=== PATIENT | female | born 1970 | race Caucasian/White ===

== ENCOUNTER 2017-09-03 10:57 | Emergency (ER) | payer OTHER ==
[~2017-09-03] VITALS: Ht 160 cm; Wt 58.1 kg
[~2017-09-03 10:57] MED LIST: CELEXA40 MG PO; PANTOPRAZOLE SO40 MG PO
--- OUTSIDE RECORDS SUMMARY | 2017-09-03 11:00 | XMS REPORT | Summary of Care ---
Author Author [facility] Address [address] [place] [address] Phone Unavailable Care Team Providers Care Clinical Services Consultant Name Role Phone ANTHONY DESAI N.P. 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 * Refills: 0 * Start : 02-May-2017 Active Propranolol HCl TABS * Refills: 0 Active Pantoprazole Sodium 40 MG Oral Tablet Delayed Release TAKE 1 TABLET BY MOUTH EVERY MORNING 30 MINUTES BEFORE BREAKFAST * Quantity: 30 Refills: 2 DEMIAN BERNARD * Start : 02-May-2017 Active AZO Cranberry TABS * Refills: 0 Active Amoxicillin-Pot Clavulanate 500-125 MG Oral Tablet TAKE 1 TABLET TWICE DAILY, WITH MORNING AND EVENING MEAL * Quantity: 10 Refills: 0 ANTHONY DESAI N.P. * Start : 31-May-2017 Active Allergies and Adverse Reactions Name Dates Details No Known Drug Allergies (Allergy) Status: Active Past Medical History Name Dates Details History of depression (V11.8, Z86.59) Status: Resolved History of gastritis (V12.79, Z87.19) Status: Resolved History of hearing problem (V12.49, Z86.69) Status: Resolved History of influenza (V12.09, Z87.09) Status: Resolved History of Vision problem (V41.0, H54.7) Status: Resolved Procedures Procedure Dates Details History of tubal ligation Completed History of rotator cuff repair Completed History of stapedectomy Completed History of tonsillectomy Completed History of hip surgery Completed Immunization Name Dates Details Immunizations not documented Family History Name Dates Details Family history of depression (V17.0, Z81.8) Status: Active Name Dates Details Family history of depression (V17.0, Z81.8) Status: Active Name Dates Details Family history of lung cancer (V16.1, Z80.1) Status: Active Family history of diabetes mellitus (V18.0, Z83.3) Status: Active Family history of High cholesterol (272.0, E78.00) Status: Active Family history of hypertension (V17.49, Z82.49) Status: Active Name Dates Details Family history of diabetes mellitus (V18.0, Z83.3) Status: Active Family history of High cholesterol (272.0, E78.00) Status: Active Family history of hypertension (V17.49, Z82.49) Status: Active Name Dates Details Family history of depression (V17.0, Z81.8) Status: Active Social History Name Dates Details - Status: Name Dates Details Former smoker Vital Signs Date Test Result Details :06 BP Systolic 113 mm[Hg] Status: Comments: Location: LUE; Position: Sitting BP Diastolic 77 mm[Hg] Status: Comments: Location: LUE; Position: Sitting Height 63 in Status: Weight 128.125 lb Status: Body Mass Index Calculated 22.7 kg/m2 Status: Body Surface Area Calculated 1.6 m2 Status: Temperature 97.5 f Status: Comments: Method: Temporal Heart Rate 72 /min Status: Comments: Location: L Brachial Artery; Respiration Rate 16 /min Status: Results Date Description Value Details :08 [O] Urine Dipstick (In Office) LEUKOCYTES trace NITRITE neg (Normal) UROBILINOGEN normal (Normal) PROTEIN neg (Normal) pH 5 URINE BLOOD trace SPECIFIC GRAVITY 1.020 KETONES neg (Normal) BILIRUBIN normal (Normal) GLUCOSE normal (Normal) COLOR URINE yellow APPEARANCE clear [id number] [[facility]] CULTURE, URINE, ROUTINE CULTURE Comments: CULTURE, URINE, ROUTINE MICRO NUMBER: [id number] TEST STATUS: FINAL SPECIMEN SOURCE: NOT GIVEN SPECIMEN QUALITY: ADEQUATE RESULT: No Growth Plan of Care Name Dates Details Planned Observations Planned Goals not documented Instructions Name Dates Details Instructions not documented Encounters Appointment; DEMIAN CRAWFORD P.A. Encounter Diagnosis: Problem not documented On: 02-May-2017 9:45 Appointment; ANTHONY DESAI NP Encounter Diagnosis: Problem not documented On: 31-May-2017 8:00
[2017-09-03] MEDS ORDERED: MORPHINE SULFATE 4 MG/ML SYR IV STA (11:01)
[2017-09-03] MEDS ORDERED: SODIUM CHLORIDE 0.9% 1000ML 1,000 ML IV STA (11:01)
[2017-09-03] MEDS ORDERED: DIATRIZOATE MEGL/DIATRIZOA SOD 30 ML BTL PO ONE (11:09)
[2017-09-03] MEDS ORDERED: ONDANSETRON HCL 4 MG ORAL DISINTEGRATING TAB PO ONE (11:15)
[2017-09-03] MEDS ORDERED: ASPIRIN 81 MG CHEW TAB PO ONE (11:15)
--- NOTE | 2017-09-03 11:59 | Diagnostic Imaging Report ---
EXAMINATION: CHEST SINGLE (PORTABLE) INDICATION: \S\ERMD ORDER \S\[id number] \S\1125 \S\Y COMPARISON: None FINDINGS: AP view TUBES and LINES: None. LUNGS: Lungs are well inflated. Lungs are clear. There is no evidence of pneumonia or pulmonary edema. PLEURA: No pleural effusion or pneumothorax. HEART AND MEDIASTINUM: The cardiomediastinal silhouette is unremarkable. BONES AND SOFT TISSUES: No acute osseous lesion. Lower cervical fusion hardware. Soft tissues are unremarkable. UPPER ABDOMEN: No free air under the diaphragm. IMPRESSION: No acute thoracic abnormality. Signed by: DR. Adelso Paez MD on 09/03/2017 11:55 AM
[2017-09-03 12:40] LABS: PREGNANCY TEST, URINE NEGATIVE (NEGATIVE)
[2017-09-03 12:43] LABS: BILIRUBIN,URINE NEGATIVE (NEGATIVE); KETONES,URINE NEGATIVE (NEGATIVE); LEUKOCYTE ESTERASE ,URINE NEGATIVE (NEGATIVE); NITRITE,URINE NEGATIVE (NEGATIVE); PROTEIN,URINE DIPSTICK NEGATIVE (NEGATIVE); URINE UROBILINOGEN 0.2 mg/dL (0.2 - 1)
[2017-09-03 12:54] LABS: COLOR,URINE YELLOW (YELLOW)
[2017-09-03 12:55] LABS: BACTERIA,URINE RARE /HPF; CLARITY,URINE CLEAR (CLEAR); EPITHELIAL CELLS,URINE FEW /LPF; RBC,URINE 0-5 /HPF (0-5); WBC,URINE (MAN) 0-5 /HPF (0-5)
[2017-09-03 13:06] LABS: BASOPHILS % 0.3 % (0.0-1.0); EOSINOPHILS # (AUTO) 0.1 (0.0-0.4); EOSINOPHILS % 1.8 % (0.0-6.0); HEMATOCRIT 37.9 % (34.2-44.1); HEMOGLOBIN 12.8 g/dL (12.0-16.0); LYMPHOCYTES # (AUTO) 0.6 (1.0-3.2); LYMPHOCYTES % 17.4 % (18.0-39.1); MEAN CORPUSCULAR HEMOGLOBIN 34.3 pg (28-32); MEAN CORPUSCULAR HGB CONC 33.8 g/dL (31-35); MEAN CORPUSCULAR VOLUME 101.6 fL (81-99); MONOCYTES # (AUTO) 0.3 (0.2-0.8); MONOCYTES % 8.8 % (4.4-11.3); NEUTROPHILS # (AUTO) 2.4 (2.1-6.9); NEUTROPHILS % 71.4 % (38.7-80.0); PLATELET COUNT 176 x10e3/uL (140-360); RED BLOOD COUNT 3.73 x10e6/uL (3.6-5.1); RED CELL DISTRIBUTION WIDTH 12.4 % (11.7-14.4)
[2017-09-03 13:21] LABS: ALANINE AMINOTRANSFERASE 33 IU/L (0-55); ALBUMIN 4.6 g/dL (3.5-5.0); ALBUMIN/GLOBULIN RATIO 1.3 (0.8-2.0); ALKALINE PHOSPHATASE 59 IU/L (40-150); AMYLASE 76 U/L (25-125); ANION GAP 14.9 mmol/L (8-16); BLOOD UREA NITROGEN 14 mg/dL (7-26); BUN/CREATININE RATIO 17 (6-25); CALCIUM 9.1 mg/dL (8.4-10.2); CARBON DIOXIDE 24 mmol/L (22-29); CHLORIDE 105 mmol/L (98-107); CREATINE KINASE 71 IU/L (29-168); CREATININE, SERUM 0.81 mg/dL (0.57-1.11); EST GLOMERULAR FILTRATION RATE > 60 ML/MIN (60-); GLUCOSE 109 mg/dL (74-118); LIPASE 33 U/L (8-78); POTASSIUM 3.9 mmol/L (3.5-5.1); SODIUM 140 mmol/L (136-145)
[2017-09-03 13:25] LABS: BAND NEUTROPHILS % (MANUAL) 1 %; EOSINOPHILS % (MANUAL) 2 % (0-7); LYMPHOCYTES % (MANUAL) 30 % (19-48); MONOCYTES % (MANUAL) 6 % (3.4-9.0); NEUTROPHILS % (MANUAL) 58 % (40-74)
[2017-09-03] MEDS ORDERED: MORPHINE SULFATE 2 MG/ML SYR ONE (13:25)
[2017-09-03 13:26] LABS: PLATELET ESTIMATE ADEQUATE; PLATELET MORPHOLOGY COMMENT NORMAL; RBC MORPHOLOGY COMMENT ABNORMAL
--- NOTE | 2017-09-03 14:26 | Diagnostic Imaging Report ---
EXAM: CT Abdomen and Pelvis WITH contrast INDICATION: \S\r/o divertic COMPARISON: Abdominal CT from 02/01/2000 TECHNIQUE: Abdomen and pelvis were scanned utilizing a multidetector helical scanner from the lung base to the pubic symphysis after administration of IV contrast. Coronal and sagittal reformations were obtained. Routine protocol was performed. Scan was performed when during portal venous phase. IV CONTRAST: 100 mL of Isovue-370 ORAL CONTRAST: Gastroview COMPLICATIONS: None RADIATION DOSE: Total DLP: 311.8 mGy*cm Estimated effective dose: (DLP x 0.015 x size factor) mSv CTDIvol has been reviewed. It is below the limits set by the Radiation Protocol Committee (RPC). FINDINGS: LINES and TUBES: None. LOWER THORAX: Unremarkable HEPATOBILIARY: No focal hepatic lesions. No biliary ductal dilation. Single tiny focus of air in the nondilated common bile duct which may be related to prior sphincterotomy. GALLBLADDER: No radio-opaque stones or sludge. No wall thickening. SPLEEN: No splenomegaly. PANCREAS: No focal masses or ductal dilatation. ADRENALS: No adrenal nodules KIDNEYS/URETERS: Kidneys enhance symmetrically. No hydronephrosis. Low attenuating lesion in the superior right renal pole, too small to characterize but statistically likely a cyst. No stones. GI TRACT: No abnormal distention, wall thickening, or evidence of bowel obstruction. Moderate amount of stool in the colon. Appendix is normal. PELVIC ORGANS/BLADDER: Tubal ligation clips. Otherwise, unremarkable. LYMPH NODES: No lymphadenopathy. VESSELS: There is mild atherosclerotic disease in the aorta and major arterial branches. Retroaortic left renal vein. PERITONEUM / RETROPERITONEUM: No free air or fluid. BONES: Bilateral L5 pars defects with minimal grade 1 anterolisthesis of L5 on S1. SOFT TISSUES: Unremarkable. IMPRESSION: 1. No acute abnormalities in the abdomen and pelvis. 2. Tiny focus of air in the common bile duct which may be secondary to prior sphincterotomy. Recommend correlation with prior history. Signed by: DR. Adelso Paez MD on 09/03/2017 2:22 PM
[2017-09-03] MEDS ORDERED: SODIUM CHLORIDE 0.9% 50ML 50 ML ONE (14:39)
[2017-09-03] MEDS ORDERED: IOPAMIDOL 370 MG/ML 200 ML INFUS..BTL INJ ONE (14:39)
[2017-09-03] MEDS ORDERED: BELLADONNA ALK/PHENOBARBITAL 5 ML UDC PO STA (16:49)
[2017-09-03] MEDS ORDERED: MAGNESIUM/ALUMINUM/SIMETHICONE 30 ML UDC PO ONE (17:00)
[2017-09-03] MEDS ORDERED: LIDOCAINE VISC 2% SOLN 15 ML UDC PO ONE (17:00)
[2017-09-03] MEDS ORDERED: METOCLOPRAMIDE HCL 10 MG/2ML VIAL IV ONE (17:00)
== END 2017-09-03 18:14 | disposition home or self-care (01) ==
LOC: ER 10:57
DX: K29.00 Acute gastritis without bleeding (principal)
CPT/HCPCS: 93005; 99284; J2270; J2765; J7030; Q9967

== ENCOUNTER → 2017-10-17 | Outpatient (CLI) | payer OTHER ==
--- NOTE | 2017-10-17 15:24 | Diagnostic Imaging Report ---
PROCEDURE:HIPS BILAT TWO VWS(+/- PELVIS) INDICATION:Evaluate for osteomyelitis COMPARISON:CT Abdomen/pelvis 09/03/17. FINDINGS: Mild degenerative changes of bilateral hips. No evidence of fracture or malalignment. There is partially seen cortical thickening and sclerotic changes in the left proximal femoral shaft, which may reflect prior history of osteomyelitis. No evidence of bony destructive changes or periosteal thickening. No lytic lesions identified. No evidence of soft tissue abnormality. CONCLUSION: No specific radiographic evidence of acute osteomyelitis as clinically queried, although MRI would more sensitive for evaluation. Cortical thickening and sclerotic changes partially seen in the left proximal femoral shaft, which could sequela of prior osteomyelitis, as noted from history. Mild bilateral hip degenerative changes. Dictated by: BASILIO ECHEVERRIA M.D. on 10/17/2017 at 15:29 Electronically approved by: BASILIO ECHEVERRIA M.D. on 10/17/2017 at 15:29
== END ==
LOC: RAD 14:23
PROVIDERS: ATTEND Family Medicine
DX: M53.3 Sacrococcygeal disorders, not elsewhere classified (principal); M25.551 Pain in right hip
CPT/HCPCS: 73521

== ENCOUNTER → 2017-11-21 | Outpatient (CLI) | payer OTHER ==
--- NOTE | 2017-11-21 20:50 | Diagnostic Imaging Report ---
Hepatobiliary Scan with Gallbladder Ejection Fraction Clinical information: 47 F with progressively worsening epigastric pain Report: Following intravenous administration of 6.6 millicuries of Tc-99m mebrofenin, dynamic images of the abdomen in the anterior projection were obtained through 90 minutes. Sincalide (CCK analog) 1.2 micrograms was administered intravenously over 30 minutes with additional imaging for determination of gallbladder ejection fraction. Perfusion of the liver is normal. Extraction of tracer from the blood pool by the liver parenchyma is normal. Tracer is seen promptly within the biliary tract. The gallbladder begins to fill by 82 minutes post-injection of tracer and fills adequately. Tracer is seen in the small bowel by 10 minutes. The gallbladder ejection fraction with administration of sincalide is 55% (normal greater than 40%). Impression: 1. Filling of the gallbladder excludes the diagnosis of acute cystic duct obstruction/acute cholecystitis. 2. Normal gallbladder ejection fraction of 55% does not support the clinical diagnosis of chronic cholecystitis/gallbladder dyskinesia. Signed by: Dr. Svetlana Pace M.D. on 11/21/2017 8:47 PM
== END ==
LOC: NM 08:23
PROVIDERS: ATTEND Internal Medicine Gastroenterology
DX: R10.13 Epigastric pain (principal); K21.9 Gastro-esophageal reflux disease without esophagitis; R12 Heartburn; K50.90 Crohn's disease, unspecified, without complications; R13.10 Dysphagia, unspecified; Z68.22 Body mass index [BMI] 22.0-22.9, adult
CPT/HCPCS: 78227; A9537

== ENCOUNTER → 2018-07-05 | Outpatient (CLI) | payer OTHER ==
--- NOTE | 2018-07-05 15:53 | Diagnostic Imaging Report ---
History: Chronic neck pain Comparison studies: None Technique: Axial images were obtained through the cervical region. Coronal and sagittal images reconstructed from the axial data. Intravenous contrast: None Findings: Atlantoaxial articulation: Intact Alignment: Straightened cervical curvature. Minimal anterolisthesis of C7 on T1. Cervicomedullary junction: No abnormalities. Patent foramen magnum. Soft tissues: No gross abnormalities. Vertebrae: No fractures, neoplasm or infection. Postsurgical changes of anterior cervical discectomy (ACDF) from C4 to C7. No evidence of hardware failure or hardware loosening. Degenerative changes: C2-C3: No abnormalities. C3-C4: Mildly degenerated disc with mild left facet arthrosis. Small disc bulge indents the thecal sac without significant canal stenosis. Patent foramina. C4-C5: Surgical level. Patent canal and foramina. C5-C6: Surgical level. Moderate right and mild/moderate left foraminal stenosis due to uncovertebral and mild facet arthrosis. C6-C7: Surgical level. Mild left frontal stenosis due to uncovertebral arthrosis. Patent canal and right foramen. C7-T1: Mildly degenerated disc. Minimal anterolisthesis of C7 on T1 with moderate bilateral facet arthrosis. Patent canal and foramina. IMPRESSION: 1. Surgical changes of C4-C7 ACDF. 2. Degenerative foraminal stenosis, moderate right and mild to moderate left at C5-C6 and mild left at C6-C7. 3. Moderate facet arthrosis at C7-T1 with minimal anterolisthesis of C7 on T1. Please note, cannot exclude ligament, vascular or spinal cord abnormalities on the basis of this exam. Signed by: Dr. Mook Rush M.D. on 07/05/2018 3:49 PM
--- NOTE | 2018-07-05 16:31 | Diagnostic Imaging Report ---
TECHNIQUE: Magnetic resonance imaging of the LEFT SHOULDER was performed WITHOUT injected contrast. COMPARISON: None available. HISTORY: Left shoulder pain FINDINGS: MUSCLES AND TENDONS: Rotator Cuff: Tendons: Intact without tear. Muscles: No focal muscle atrophy. Biceps Tendon: Intra-articular tendinosis. GLENOHUMERAL JOINT: Glenoid Labrum: No displaced tear. Articular Cartilage: No focal defect. AC JOINT AND ACROMION: Mild hypertrophic degenerative changes of the acromioclavicular joint. The acromion is unremarkable. BONE: No focal or infiltrative bone marrow replacing abnormality. No acute fracture. SOFT TISSUES: Infiltration of the rotator cuff interval and mild thickening of the axillary recess. IMPRESSION: Intact rotator cuff without tear. Possible adhesive capsulitis. Signed by: Dr. Christoph Stokes M.D. on 07/05/2018 4:28 PM
== END ==
LOC: CT 14:33
PROVIDERS: ATTEND Family Medicine Sports Medicine
DX: M54.2 Cervicalgia (principal); M47.812 Spondylosis without myelopathy or radiculopathy, cervical region; M75.52 Bursitis of left shoulder; M75.42 Impingement syndrome of left shoulder
CPT/HCPCS: 72125